=== PATIENT | female | born 1965 | race Caucasian/White ===

== ENCOUNTER → 2022-02-06 15:47 | Outpatient (CLI) | payer MEDICARE, MEDICAID, SELFPAY ==
[2022-02-07 08:04] LABS: Valproic Acid (Depakene) Total 57 ug/mL (50-100)
== END ==
PROVIDERS: Nurse Practitioner Psychiatric/Mental Health
DX: F31.81 Bipolar II disorder (principal)
CPT/HCPCS: 36415; 80164